=== PATIENT | male | born 1930 | race Caucasian/White ===

== ENCOUNTER 2018-03-28 11:13 | Outpatient (CLI) | payer OTHER ==
[~2018-03-28 11:13] MED LIST: ASA81 MG; HYZAAR 100-251 UDTAB; METFORMIN HCL500 MG; NEXIUM20 MG/PACK; NEXIUM40 MG/PACK; PROSCAR5 MG; SYNTHROID50 MCG; TAMS0.4C; ZOCOR5 MG
== END 2018-03-28 12:26 | disposition home or self-care (01) ==
LOC: RAD 11:13
DX: M25.561 Pain in right knee (principal)

== ENCOUNTER 2018-09-08 13:55 | Outpatient (CLI) | payer OTHER | END 2018-09-08 14:06 | disposition home or self-care (01) | LOC: RAD 13:55 | DX: J45.21 Mild intermittent asthma with (acute) exacerbation (principal) ==

== ENCOUNTER 2018-09-12 11:38 | Outpatient (CLI) | payer OTHER | END 2018-09-12 15:10 | disposition home or self-care (01) | LOC: TOM 11:38 | DX: R91.1 Solitary pulmonary nodule (principal); J20.9 Acute bronchitis, unspecified ==

== ENCOUNTER → 2019-01-28 | Outpatient (CLI) | payer OTHER | END | disposition home or self-care (01) | LOC: RAD 16:24 | DX: M47.816 Spondylosis without myelopathy or radiculopathy, lumbar region (principal) ==

== ENCOUNTER → 2020-05-02 | Outpatient (CLI) | payer OTHER | END | disposition home or self-care (01) | LOC: PPH VACUNA 10:16 | PROVIDERS: ATTEND Emergency Medicine Pediatric Emergency Medicine | DX: Z23 Encounter for immunization (principal) ==

== ENCOUNTER 2020-05-17 09:29 | Outpatient (CLI) | payer OTHER | END 2020-05-17 09:31 | disposition home or self-care (01) | LOC: LAB 09:29 | PROVIDERS: ATTEND Internal Medicine | DX: E03.8 Other specified hypothyroidism (principal); I11.9 Hypertensive heart disease without heart failure; E78.2 Mixed hyperlipidemia ==

== ENCOUNTER 2020-05-23 13:50 | Outpatient (CLI) | payer OTHER | END 2020-05-23 15:00 | disposition home or self-care (01) | LOC: PPH VACUNA 13:50 | PROVIDERS: ATTEND Emergency Medicine Pediatric Emergency Medicine | DX: Z23 Encounter for immunization (principal) ==

== ENCOUNTER 2020-07-04 13:04 | Outpatient (CLI) | payer OTHER | END 2020-07-04 13:20 | disposition HB | LOC: TOM 13:04 | DX: G93.89 Other specified disorders of brain (principal) ==

== ENCOUNTER 2020-08-01 14:17 | Outpatient (CLI) | payer OTHER | END 2020-08-01 14:19 | disposition home or self-care (01) | LOC: LAB 14:17 | PROVIDERS: ATTEND Radiology Diagnostic Radiology | DX: N20.0 Calculus of kidney (principal) ==

== ENCOUNTER 2020-08-02 07:59 | Outpatient (CLI) | payer OTHER | END 2020-08-02 08:06 | disposition home or self-care (01) | LOC: MRI 07:59 | PROVIDERS: ATTEND Internal Medicine | DX: G93.89 Other specified disorders of brain (principal); I63.50 Cerebral infarction due to unspecified occlusion or stenosis of unspecified cerebral artery | CPT/HCPCS: 70553; A9575 ==

== ENCOUNTER 2021-02-06 08:00 | Outpatient (CLI) | payer OTHER | END 2021-02-06 08:30 | disposition home or self-care (01) | LOC: PPH VACUNA 08:00 | PROVIDERS: ATTEND Emergency Medicine Pediatric Emergency Medicine | DX: Z23 Encounter for immunization (principal) ==

== ENCOUNTER 2021-04-14 15:45 | Outpatient (CLI) | payer OTHER | END 2021-04-14 15:56 | disposition home or self-care (01) | LOC: RAD 15:45 | PROVIDERS: ATTEND Internal Medicine | DX: R07.89 Other chest pain (principal); I51.7 Cardiomegaly ==

== ENCOUNTER 2021-06-30 12:58 | Outpatient (CLI) | payer OTHER | END 2021-06-30 13:00 | disposition home or self-care (01) | LOC: TOM 12:58 | PROVIDERS: ATTEND Specialist | DX: I27.20 Pulmonary hypertension, unspecified (principal); R91.8 Other nonspecific abnormal finding of lung field ==

== ENCOUNTER 2021-08-30 08:00 | Outpatient (CLI) | payer OTHER | END 2021-08-30 08:30 | disposition home or self-care (01) | LOC: PPH VACUNA 08:00 | PROVIDERS: ATTEND Emergency Medicine Pediatric Emergency Medicine | DX: Z23 Encounter for immunization (principal) ==

== ENCOUNTER 2021-11-06 11:08 | Outpatient (CLI) | payer OTHER | END 2021-11-06 11:50 | disposition home or self-care (01) | LOC: ASH CLINIC 11:08 | PROVIDERS: ATTEND Emergency Medicine Pediatric Emergency Medicine | DX: U07.1 COVID-19 (principal) ==